=== PATIENT | female | born 1975 | race Caucasian/White ===

== ENCOUNTER 2016-12-23 16:41 | Emergency (ER) | payer BC ==
[2016-12-23 16:49] VITALS: BP 139/89
--- NOTE | 2016-12-23 19:13 | UC ---
Complaint Female HPI - HPI Summary HPI Summary: ONE WEEK OF BROWN VAGINAL DISCHARGE AND VAGINAL IRRITATION. LOWER ABDOMINAL PAIN AND URINARY FREQUENCY SINCE THIS MORNING. NO CHANGES IN SEXUAL PARTNER ( SAME MONOGAMOUS PARTNER FOR 20YRS). - History Of Current Complaint Chief Complaint: UCAbdominalPain Stated Complaint: ABDOMINAL PAIN Time Seen by Provider: 12/23/16 17:37 Hx Obtained From: Patient Hx Last Menstrual Period: 12/16/16 Onset/Duration: Gradual Onset, Worse Since - THIS MORNING Timing: Intermittent Severity Initially: Moderate Severity Currently: Moderate Pain Intensity: 7 Pain Scale Used: 0-10 Numeric Character: Dull, Burning Aggravating Factor(s): Urination Associated Signs And Symptoms: Positive: Vaginal Discharge. Negative: Fever, Back Pain, Nausea, Vomiting(# Of Episodes =), Genital Swelling, Genital Blisters - Risk Factors Ectopic Risk Factor: Negative Ovarian Torsion Risk Factor: Negative - Allergies/Home Medications Allergies/Adverse Reactions: Allergies Allergy/AdvReac Type Severity Reaction Status Date / Time Morphine Allergy Nausea Verified 12/23/16 16:47 PMH/Surg Hx/FS Hx/Imm Hx Previously Healthy: Yes - Surgical History Surgical History: Yes Surgery Procedure, Year, and Place: ap c/sec x 2 - Family History Known Family History: Negative: Renal Disease - Social History Occupation: Employed Full-time Lives: With Family Alcohol Use: Occasionally Substance Use Type: None Smoking Status (MU): Never Smoked Tobacco Review of Systems Constitutional: Negative Skin: Negative Eyes: Negative ENT: Negative Gastrointestinal: Abdominal Pain Genitourinary: Dysuria, Frequency, Urgency, Vaginal/Penile Burning, Vaginal/ Penile Discharge Motor: Negative Neurovascular: Negative Musculoskeletal: Negative Neurological: Negative Psychological: Negative Is Patient Immunocompromised?: No All Other Systems Reviewed And Are Negative: Yes Physical Exam Triage Information Reviewed: Yes Appearance: Well-Appearing, Well-Nourished, Pain Distress - MILD Vital Signs: Initial Vital Signs Temp 98 F 12/23/16 16:47 Pulse 76 12/23/16 16:47 Resp 16 12/23/16 16:47 BP 139/89 12/23/16 16:47 Pulse Ox 100 12/23/16 16:47 Vital Signs Reviewed: Yes Eye Exam: Normal Eyes: Positive: Conjunctiva Clear ENT Exam: Normal Dental Exam: Normal Neck exam: Normal Neck: Positive: Supple, Nontender, No Lymphadenopathy Respiratory Exam: Normal Respiratory: Positive: Chest non-tender, Lungs clear, Normal breath sounds, No respiratory distress, No accessory muscle use Cardiovascular Exam: Normal Cardiovascular: Positive: RRR, No Murmur, Pulses Normal, Brisk Capillary Refill Abdominal Exam: Normal Abdomen Description: Positive: Nontender, No Organomegaly, Soft Musculoskeletal Exam: Normal Musculoskeletal: Positive: Strength Intact, ROM Intact Neurological Exam: Normal Psychological Exam: Normal Psychological: Positive: Normal Response To Family Skin Exam: Normal - Additional Comments NO LESIONS OR RASHES TO EXTERNAL GENITALIA; 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 NO CANDIDIAL LESIONS VISUALIZED. ABDOMEN NONTENDER Complaint Female Dx - Differential Dx/Diagnosis Differential Diagnosis/HQI/PQRI: Cervicitis, Sexually Transmitted Disease, Urinary Tract Infection Provider Diagnoses: URINARY TRACT INFECTION; BACTERIAL VAGINOSIS Discharge - Discharge Plan Condition: Stable Disposition: HOME Prescriptions: Fluconazole [Diflucan 150 MG (NF)] 150 mg PO ONCE #1 tab Metronidazole [Flagyl 500 MG TAB] 500 mg PO TID #21 tab Phenazopyridine TAB* [Pyridium 100 mg TAB*] 100 mg PO TID PRN #15 tab PRN Reason: Pain Sulfamethox/Trimethoprim DS* [Bactrim DS 800/160 TAB*] 1 tab PO BID #10 tab Patient Education Materials: Bacterial Vaginosis (ED), Urinary Tract Infection in Women (ED) Referrals: Yaneth Montalvo MD [Medical Doctor] - Zaire Brown MD [Primary Care Provider] -
[2016-12-24 10:45] LABS: Trichomonas Source Endocervical (Negative)
== END 2016-12-23 18:37 | disposition home or self-care (01) ==
LOC: UCEAST 16:41
DX: N39.0 Urinary tract infection, site not specified (principal); Z88.6 Allergy status to analgesic agent; N76.0 Acute vaginitis; Z32.02 Encounter for pregnancy test, result negative
CPT/HCPCS: 81003; 84702; 87077; 87086; 87186; 87480; 87491; 87510; 87591; 87661; 99212; G0463